=== PATIENT | female | born 1990 | race Caucasian/White ===

== ENCOUNTER 2021-05-06 00:34 | Emergency (ER) | payer OTHER ==
[~2021-05-06] VITALS: Ht 160 cm; Wt 72.6 kg
[2021-05-06 02:11] VITALS: BP 126/83
== END 2021-05-06 03:47 | disposition left against medical advice (07) ==
LOC: ER 00:34
DX: R11.2 Nausea with vomiting, unspecified (principal); Z53.21 Procedure and treatment not carried out due to patient leaving prior to being seen by health care provider